=== PATIENT | female | born 1965 | race Hispanic/Latino ===

== ENCOUNTER 2021-07-22 21:36 | Inpatient (IN) | payer SELFPAY ==
[2021-07-22] MEDS ORDERED: Ondansetron PF 4 MG/2 ML Vial ONE (21:51)
[2021-07-22] MEDS ORDERED: Fentanyl 100 MCG/2 ML VIAL ONE (21:51)
[2021-07-22] MEDS ORDERED: Piperacillin/Tazobactam 3.375 GM in Sodium Chloride 0.9% 100 ML IVPB SCH (22:00)
[2021-07-22 22:17] LABS: Bacteria/HPF 2+ HPF (None Seen); Bilirubin Negative (Negative); Blood, Urine 1+ (Negative); Clarity Clear (Clear); Glucose, Urine (Dipstick) Normal (Negative); Ketone, Urine Negative (Negative); Leukocyte 250 Leu/uL (Negative); Nitrite Negative (Negative); Protein, Urine (Dipstick) 30 mg/dL (Neg-Trace); RBC/HPF 0-3 HPF (0-3); Specific Gravity, Urine 1.021 (1.002-1.036); Urobilinogen Normal mg/dL (Less than 2); WBC/HPF 21-50 HPF (0-3); pH, Urine 5.5 (5.0-9.0)
[2021-07-22] MEDS ORDERED: Morphine 4 MG/ML VIAL SLOW IVP PRN (22:22)
[2021-07-22] MEDS ORDERED: D5 1/2 NS w/20 mEq KCL 1,000 ML IV SCH (22:30)
[2021-07-22] MEDS ORDERED: Ondansetron ODT 4 MG TAB SL PRN (22:30)
[2021-07-22] MEDS ORDERED: Ondansetron PF 4 MG/2 ML Vial IVP PRN (22:30)
[2021-07-22 22:41] LABS: INR-International Normal Ratio 1.2; Prothrombin Time 15.7 sec (12.0-14.7)
[2021-07-22 22:42] LABS: PTT 32.7 sec (22.9-36.1)
[2021-07-22] MEDS ORDERED: Vancomycin 1 GM in Premix Bag 1 BAG IVPB SCH (23:00)
[2021-07-22] MEDS ORDERED: Lactated Ringer's 1,000 ML IV SCH (23:45)
[2021-07-22] MEDS ORDERED: Potassium Chloride 20 MEQ TAB PO SCH (23:45)
[2021-07-23] MEDS ORDERED: Vancomycin HCl 1.5 GM in Sodium Chloride 0.9% 250 ML 300 ML IVPB SCH (01:00)
[2021-07-23] MEDS: Piperacillin/Tazobactam 3.375 GM in Sodium Chloride 0.9% 100 ML IVPB SCH ×4 (01:19→23:37)
[2021-07-23 01:23] VITALS: BMI 33.8
[2021-07-23] MEDS: Lactated Ringer's 1,000 ML IV SCH ×5 (02:18→21:35)
[2021-07-23 03:16] LABS: Hemoglobin 9.2 g/dL (12.0-16.0); Mean Corpuscular Volume 96.8 fL (78.0-98.0); Mean Platelet Volume 8.2 fL (7.4-10.4); Platelet Count 58 thou/uL (130-400); RBC Distribution Width 13.5 % (11.5-14.5); Red Blood Cell (RBC) Count 2.98 mill/uL (4.20-5.40); White Blood Cell (WBC) Count 11.8 thou/uL (4.8-10.8)
[2021-07-23 03:17] LABS: Band 28 % (5-11); Hypochromia SLIGHT = 6-15 cells (100X) (0-5/hpf); Lymphocytes 8 % (21-51); MDiff Complete? YES; Monocytes 9 % (0-10); Neutrophil 55 % (42-75); Platelet Morphology Comment Appears Decreased
[2021-07-23 03:18] LABS: Lactic Acid 2.7 mmol/L (0.5-2.2)
[2021-07-23 03:28] LABS: ALT (SGPT) 18 U/L (8-55); AST (SGOT) 25 U/L (5-34); Albumin 2.4 g/dL (3.5-5.0); Alkaline Phosphatase 107 U/L (40-110); Anion Gap 17 mmol/L (10-20); BUN (Urea Nitrogen) 43 mg/dL (9.8-20.1); Bilirubin, Total 0.9 mg/dL (0.2-1.2); Calc. Creatinine Clearance 65 mL/min (70-130); Calcium 7.1 mg/dL (7.8-10.44); Carbon Dioxide 15 mmol/L (22-29); Chloride 109 mmol/L (98-107); Globulin 2.5 g/dL (2.4-3.5); Glucose 99 mg/dL (70-105); Potassium 3.7 mmol/L (3.5-5.1); Protein, Total 4.9 g/dL (6.0-8.3); Sodium 137 mmol/L (136-145)
[2021-07-23 05:51] LABS: INR-International Normal Ratio 1.3; Prothrombin Time 15.8 sec (12.0-14.7)
[2021-07-23 05:52] LABS: PTT 43.3 sec (22.9-36.1)
[2021-07-23] MEDS ORDERED: Fentanyl 100 MCG/2 ML VIAL SLOW IVP SCH (07:45)
[2021-07-23] MEDS ORDERED: Ondansetron PF 4 MG/2 ML Vial IVP SCH (07:45)
[2021-07-23] MEDS ORDERED: Fentanyl 100 MCG/2 ML VIAL ONE (08:35)
[2021-07-23] MEDS ORDERED: Midazolam HCl 2 mg/2 ml Vial ONE (08:35)
[2021-07-23 10:07] LABS: Lactic Acid 3.9 mmol/L (0.5-2.2)
[2021-07-23] MEDS ORDERED: Melatonin 3 MG TAB PO PRN (11:23)
[2021-07-23] MEDS ORDERED: Morphine 4 MG/ML VIAL ONE (11:24)
[2021-07-23] MEDS: Morphine 4 MG/ML VIAL SLOW IVP PRN ×3 (11:30→17:37)
[2021-07-23] MEDS: traMADol HCl 50 MG TAB PO PRN (16:08)
[2021-07-23 16:57] LABS: Lactic Acid 1.1 mmol/L (0.5-2.2)
[2021-07-23] MEDS: Ondansetron PF 4 MG/2 ML Vial IVP PRN ×2 (17:37→23:37)
[2021-07-23] MEDS: Acetaminophen 325 MG TAB PO PRN (17:37)
[2021-07-24] MEDS ORDERED: Vancomycin HCl 750 MG in Sodium Chloride 0.9% 250 ML 250 ML IVPB SCH (01:00)
[2021-07-24] MEDS: traMADol HCl 50 MG TAB PO PRN (02:49)
[2021-07-24 06:35] LABS: ALT (SGPT) 29 U/L (8-55); AST (SGOT) 36 U/L (5-34); Albumin 2.3 g/dL (3.5-5.0); Alkaline Phosphatase 112 U/L (40-110); Anion Gap 12 mmol/L (10-20); BUN (Urea Nitrogen) 28 mg/dL (9.8-20.1); Bilirubin, Total 0.8 mg/dL (0.2-1.2); Calc. Creatinine Clearance 90 mL/min (70-130); Calcium 7.7 mg/dL (7.8-10.44); Carbon Dioxide 19 mmol/L (22-29); Chloride 109 mmol/L (98-107); Globulin 2.7 g/dL (2.4-3.5); Glucose 111 mg/dL (70-105); Potassium 3.5 mmol/L (3.5-5.1); Sodium 136 mmol/L (136-145)
[2021-07-24 06:39] LABS: Hemoglobin 9.8 g/dL (12.0-16.0); Mean Corpuscular HGB CONC 31.6 g/dL (32.0-36.0); Mean Corpuscular Volume 98.1 fL (78.0-98.0); Mean Platelet Volume 9.2 fL (7.4-10.4); Platelet Count 47 thou/uL (130-400); RBC Distribution Width 13.7 % (11.5-14.5); Red Blood Cell (RBC) Count 3.18 mill/uL (4.20-5.40); White Blood Cell (WBC) Count 14.5 thou/uL (4.8-10.8)
[2021-07-24 08:00] LABS: Band 23 % (5-11); Eosinophils 9 % (0-10); Lymphocytes 9 % (21-51); MDiff Complete? YES; Monocytes 7 % (0-10); Myelocyte 1 % (0-0); Neutrophil 51 % (42-75); Platelet Morphology Comment Appears Decreased; Polychromasia SLIGHT = 2-3 cells (100X) (0-2/hpf)
[2021-07-24] MEDS: Ondansetron PF 4 MG/2 ML Vial IVP PRN ×3 (08:24→23:28)
[2021-07-24] MEDS: Piperacillin/Tazobactam 3.375 GM in Sodium Chloride 0.9% 100 ML IVPB SCH ×3 (08:24→23:27)
[2021-07-24] MEDS: Lactated Ringer's 1,000 ML IV SCH ×2 (08:34→17:12)
[2021-07-24] MEDS: Acetaminophen 325 MG TAB PO PRN (09:14)
[2021-07-24] MEDS: Ketorolac Tromethamine 30 MG/ML VIAL IVP SCH ×3 (11:57→23:28)
[2021-07-24] MEDS: HYDROcodone/Acetaminophen 5/325 mg Tablet PO PRN ×2 (12:27→17:09)
[2021-07-25] MEDS: Ketorolac Tromethamine 30 MG/ML VIAL IVP SCH ×3 (05:39→17:06)
[2021-07-25] MEDS: Ondansetron PF 4 MG/2 ML Vial IVP PRN ×2 (05:39→17:06)
[2021-07-25] MEDS: Lactated Ringer's 1,000 ML IV SCH ×2 (05:43→07:45)
[2021-07-25 06:57] LABS: ALT (SGPT) 28 U/L (8-55); AST (SGOT) 33 U/L (5-34); Albumin 2.3 g/dL (3.5-5.0); Alkaline Phosphatase 157 U/L (40-110); Anion Gap 13 mmol/L (10-20); BUN (Urea Nitrogen) 24 mg/dL (9.8-20.1); Bilirubin, Total 0.8 mg/dL (0.2-1.2); Calc. Creatinine Clearance 94 mL/min (70-130); Calcium 8.2 mg/dL (7.8-10.44); Carbon Dioxide 18 mmol/L (22-29); Chloride 106 mmol/L (98-107); Globulin 3.2 g/dL (2.4-3.5); Glucose 93 mg/dL (70-105); Potassium 3.4 mmol/L (3.5-5.1); Protein, Total 5.5 g/dL (6.0-8.3); Sodium 134 mmol/L (136-145)
[2021-07-25 06:59] LABS: Hemoglobin 9.9 g/dL (12.0-16.0); Mean Corpuscular HGB CONC 33.8 g/dL (32.0-36.0); Mean Corpuscular Hemoglobin 32.7 pg (27.0-31.0); Mean Corpuscular Volume 96.9 fL (78.0-98.0); Mean Platelet Volume 9.2 fL (7.4-10.4); Platelet Count 45 thou/uL (130-400); RBC Distribution Width 13.4 % (11.5-14.5); Red Blood Cell (RBC) Count 3.01 mill/uL (4.20-5.40); White Blood Cell (WBC) Count 10.7 thou/uL (4.8-10.8)
[2021-07-25] MEDS ORDERED: Ondansetron ODT 4 MG TAB PO SCH (07:00)
[2021-07-25] MEDS: Piperacillin/Tazobactam 3.375 GM in Sodium Chloride 0.9% 100 ML IVPB SCH (07:57)
[2021-07-25] MEDS: HYDROcodone/Acetaminophen 5/325 mg Tablet PO PRN ×3 (07:57→20:08)
[2021-07-25 08:37] LABS: Band 19 % (5-11); Eosinophils 3 % (0-10); Lymphocytes 22 % (21-51); MDiff Complete? YES; Monocytes 7 % (0-10); Neutrophil 45 % (42-75); Platelet Morphology Comment Appears Decreased; Polychromasia SLIGHT = 2-3 cells (100X) (0-2/hpf); Reactive Lymphocytes 2 % (0-10)
[2021-07-26] MEDS: Ondansetron PF 4 MG/2 ML Vial IVP PRN (01:27)
[2021-07-26] MEDS: Ketorolac Tromethamine 30 MG/ML VIAL IVP SCH ×3 (01:27→13:26)
[2021-07-26] MEDS: HYDROcodone/Acetaminophen 5/325 mg Tablet PO PRN ×2 (01:31→06:05)
[2021-07-26 06:48] LABS: Band 10 % (5-11); Eosinophils 1 % (0-10); Hemoglobin 10.7 g/dL (12.0-16.0); Lymphocytes 21 % (21-51); MDiff Complete? YES; Mean Corpuscular HGB CONC 31.3 g/dL (32.0-36.0); Mean Corpuscular Hemoglobin 30.3 pg (27.0-31.0); Mean Corpuscular Volume 96.8 fL (78.0-98.0); Mean Platelet Volume 9.1 fL (7.4-10.4); Metamyelocyte 1 % (0-0); Monocytes 2 % (0-10); Neutrophil 63 % (42-75); Platelet Count 60 thou/uL (130-400); Platelet Morphology Comment Appears Decreased; RBC Distribution Width 13.6 % (11.5-14.5); Reactive Lymphocytes 2 % (0-10); Red Blood Cell (RBC) Count 3.53 mill/uL (4.20-5.40); White Blood Cell (WBC) Count 13.6 thou/uL (4.8-10.8)
[2021-07-26 07:08] LABS: ALT (SGPT) 22 U/L (8-55); AST (SGOT) 25 U/L (5-34); Albumin 2.4 g/dL (3.5-5.0); Alkaline Phosphatase 172 U/L (40-110); Anion Gap 11 mmol/L (10-20); BUN (Urea Nitrogen) 18 mg/dL (9.8-20.1); Bilirubin, Total 0.6 mg/dL (0.2-1.2); Calc. Creatinine Clearance 101 mL/min (70-130); Calcium 8.1 mg/dL (7.8-10.44); Carbon Dioxide 22 mmol/L (22-29); Chloride 107 mmol/L (98-107); Globulin 3.4 g/dL (2.4-3.5); Glucose 98 mg/dL (70-105); Potassium 3.3 mmol/L (3.5-5.1); Protein, Total 5.8 g/dL (6.0-8.3); Sodium 137 mmol/L (136-145)
[2021-07-26] MEDS ORDERED: Potassium Chloride 20 MEQ TAB PO SCH ×2 (08:00→09:15)
[2021-07-26 08:29] VITALS: TEMP 97.6
[2021-07-26] MEDS ORDERED: FLU VACC QS2021-22(6MOS UP)/PF 60 MCG/0.5 ML SYRINGE IM ONE (09:00)
[2021-07-26] MEDS ORDERED: Promethazine 25 MG TAB PO SCH ×2 (09:15→13:45)
[2021-07-26 11:45] VITALS: BP 134/88
== END 2021-07-26 14:35 | disposition home or self-care (01) | DRG 871 ==
LOC: ERS 21:36 → SURG B 22:16 → CCU 07-23 10:19 → SURG A 07-23 20:59
PROVIDERS: ADMIT Student in an Organized Health Care Education/Training Program; ATTEND Student in an Organized Health Care Education/Training Program
PROC: 3E03329 Introduction of Other Anti-infective into Peripheral Vein, Percutaneous Approach (ICD-10-PCS; 2021-07-22)
PROC: 0T9030Z Drainage of Right Kidney with Drainage Device, Percutaneous Approach (ICD-10-PCS; principal; 2021-07-23)
DX: A41.4 Sepsis due to anaerobes (principal); R65.21 Severe sepsis with septic shock; E87.2 Acidosis; N13.6 Pyonephrosis; N17.9 Acute kidney failure, unspecified; F12.10 Cannabis abuse, uncomplicated; E87.6 Hypokalemia; D69.6 Thrombocytopenia, unspecified; K76.0 Fatty (change of) liver, not elsewhere classified; K44.9 Diaphragmatic hernia without obstruction or gangrene; N18.9 Chronic kidney disease, unspecified; I12.9 Hypertensive chronic kidney disease with stage 1 through stage 4 chronic kidney disease, or unspecified chronic kidney disease; Z28.21 Immunization not carried out because of patient refusal; Z87.442 Personal history of urinary calculi; Z91.15 Patient's noncompliance with renal dialysis; Z98.51 Tubal ligation status; Z82.3 Family history of stroke; Z79.899 Other long term (current) drug therapy
CPT/HCPCS: 36415; 50430; 50432; 74150; 76942; 80053; 83605; 84145; 85025; 85384; 85610; 85730; 87070; 87077; 87086; 87186; 87205; 93005; 96374; 96375; C1729; J1885; J2250; J2270; J2405; J2543; J3010; J3370; J3490; J7050; J7120; Q0162; Q0169